=== PATIENT | female | born 1995 | race Two or more races ===

== ENCOUNTER 2017-03-09 10:48 | Emergency (ER) | payer BC, OTHER ==
[2017-03-09 10:53] VITALS: BP 131/75
[2017-03-09] MEDS ORDERED: PENICILLIN V POTASSIUM 500 MG TABLET PO ONE (11:00)
[2017-03-09] MEDS ORDERED: DEXAMETHASONE SOD PHOS INJ 10 MG/1 ML VIAL IM ONE (11:01)
[2017-03-09] MEDS ORDERED: HYDROCODONE/ACETAMINOPHEN 5-325 MG 6 TAB/DSPK PO PRN (11:01)
--- NOTE | 2017-03-09 11:04 | ER Document Report ---
HPI - HPI Patient complains to provider of: tooth ache, sore throat Pain Level: 4 Context: Patient is a 21-year-old female comes emergency department for chief complaint of a painful tooth in the right lower jaw and the back and also for a sore throat with swollen lymph nodes in the front of her neck. Symptoms started almost 4 days ago. She denies fever. She denies abdominal pain, headache, difficulty swallowing or breathing. She denies any daily medications. - DERM Skin Color: Normal Past Medical History - General Information source: Patient - Social History Smoking Status: Never Smoker Frequency of alcohol use: None Drug Abuse: None Lives with: Family Family History: Reviewed & Not Pertinent - Medical History Medical History: Negative Renal/ Medical History: Denies: Hx Peritoneal Dialysis Past Surgical History: Reports: Hx Tonsillectomy - Immunizations Immunizations up to date: Yes Hx Diphtheria, Pertussis, Tetanus Vaccination: Yes Vertical Provider Document - CONSTITUTIONAL General Appearance: WD/WN, No Apparent Distress - INFECTION CONTROL TRAVEL OUTSIDE OF THE [place] IN LAST 30 DAYS: No - HEENT HEENT: Atraumatic, Normocephalic. negative: Normal ENT Exam - Erythematous rash over the soft palate, no tonsils visible, uvula unremarkable, no evidence of peritonsillar abscess. Erythema over the right gumline at the posterior molar, tenderness over the area with no fluctuance or swelling. No induration. Normal ENT exam otherwise. - NECK Neck: Lymphadenopathy-Left, Lymphadenopathy-Right, Other - Anterior cervical adenopathy noted bilaterally - RESPIRATORY Respiratory: Breath Sounds Normal, No Respiratory Distress O2 Sat by Pulse Oximetry: 99 - CARDIOVASCULAR Cardiovascular: Regular Rate, Regular Rhythm - GI/ABDOMEN Gastrointestinal: Abdomen Soft, Abdomen Non-Tender - BACK Back: Normal Inspection - MUSCULOSKELETAL/EXTREMETIES Musculoskeletal/Extremeties: MAEW, FROM, Non-Tender - NEURO Level of Consciousness: Awake, Alert, Appropriate - DERM Integumentary: Warm, Dry, No Rash Course - Re-evaluation Re-evalutation: Examination indicates both pharyngitis with erythematous rash over the soft palate and anterior cervical adenopathy. Patient also has what appears to be a tender area where there could be a wisdom tooth coming in, no evidence of drainable abscess, no concerning abnormalities noted. Patient treated for both pharyngitis and dental pain, referred to dentist with form, discussed return precautions in detail. Patient states understanding and agreement. - Vital Signs Vital signs: Temp Pulse Resp BP Pulse Ox 98.6 F 79 14 131/75 H 99 03/09/17 10:49 03/09/17 10:49 03/09/17 10:49 03/09/17 10:49 03/09/17 10:49 Discharge - Discharge Clinical Impression: Lymphadenopathy, Pain, dental Pharyngitis Qualifiers: Pharyngitis/tonsillitis etiology: unspecified etiology Qualified Code(s): J02.9 - Acute pharyngitis, unspecified Condition: Stable Disposition: HOME, SELF-CARE Additional Instructions: Your examination indicates both a throat infection with secondary lymph node swelling and also what appears to be a wisdom tooth that may need to be removed. Take the antibiotic as prescribed. Take the given pain medication today at night if needed to sleep. Otherwise take the ibuprofen. Follow-up with the dentist to have this repaired. Return to emergency department for any concerning or worsening symptoms including swelling of the face, difficulty swallowing, spiking fever, etc. Prescriptions: Ibuprofen 800 mg PO Q8 #30 tablet Penicillin V Potassium [Penicillin Vk 500 mg Tablet] 500 mg PO BID #20 tablet
== END 2017-03-09 11:17 | disposition home or self-care (01) ==
LOC: ER 10:48
DX: K08.89 Other specified disorders of teeth and supporting structures (principal); J02.9 Acute pharyngitis, unspecified; R59.1 Generalized enlarged lymph nodes
CPT/HCPCS: 99282; 96372; J1100